=== PATIENT | male | born 1995 ===

== ENCOUNTER 2021-01-11 22:24 | Emergency (ER) | payer OTHER ==
[~2021-01-11] VITALS: Ht 167.6 cm; Wt 68.0 kg
[2021-01-12] MEDS ORDERED: TETANUS-DIPTH-ACEL PERTUSSIS 0.5ML SYR Tdap IM ONE (05:30)
[2021-01-12 05:32] VITALS: BP 125/73
== END 2021-01-12 06:41 | disposition home or self-care (01) ==
LOC: ER 22:24
DX: S91.311A Laceration without foreign body, right foot, initial encounter (principal); W25.XXXA Contact with sharp glass, initial encounter; Y93.89 Activity, other specified; Y92.89 Other specified places as the place of occurrence of the external cause; Y99.8 Other external cause status
CPT/HCPCS: 12002; 73630; 90471; 90715